=== PATIENT | female | born 1975 | race Two or more races ===

== ENCOUNTER 2023-04-23 15:05 | Outpatient (REF) | payer OTHER, SELFPAY ==
--- NOTE | ~2023-04-23 | XR_ITS ---
X-RAY BILATERAL WRISTS CLINICAL HISTORY: Chronic pain. COMPARISON: No relevant prior studies are available for comparison. TECHNIQUE: 3 views of each wrist. FINDINGS: No acute fracture or subluxation. Carpal rows are maintained. No osseous erosions. No abnormal soft tissue calcifications. Symmetric bilateral soft tissue thickening, most likely related with patient body habitus. XR/XR wrist RT min 3V IMPRESSION: No significant radiographic abnormalities seen in the bilateral wrists to explain the patient's pain. Further evaluation with CT or MRI could be obtained as clinically deemed appropriate.
--- NOTE | ~2023-04-23 | XR_ITS ---
X-RAY BILATERAL WRISTS CLINICAL HISTORY: Chronic pain. COMPARISON: No relevant prior studies are available for comparison. TECHNIQUE: 3 views of each wrist. FINDINGS: No acute fracture or subluxation. Carpal rows are maintained. No osseous erosions. No abnormal soft tissue calcifications. Symmetric bilateral soft tissue thickening, most likely related with patient body habitus. XR/XR wrist LT min 3V IMPRESSION: No significant radiographic abnormalities seen in the bilateral wrists to explain the patient's pain. Further evaluation with CT or MRI could be obtained as clinically deemed appropriate.
== END 2023-04-23 15:06 | disposition home or self-care (01) ==
LOC: HO.HHCX 15:05
PROVIDERS: Visit Provider Internal Medicine
DX: M25.531 Pain in right wrist (principal); M25.532 Pain in left wrist
CPT/HCPCS: 73110

== ENCOUNTER 2023-04-29 08:54 | Outpatient (REF) | payer MEDICAID, OTHER, SELFPAY ==
--- NOTE | 2023-04-29 | EMG_ITS ---
Please see scanned EMG / Nerve Conduction Report. MTDD
== END 2023-04-29 08:55 | disposition home or self-care (01) ==
LOC: HO.NEURO 08:54
PROVIDERS: Visit Provider Internal Medicine
DX: M25.531 Pain in right wrist (principal); M25.532 Pain in left wrist
CPT/HCPCS: 95885; 95913

== ENCOUNTER 2024-04-27 12:00 | Outpatient (REF) | payer MEDICAID, OTHER, SELFPAY ==
[2024-04-27 13:21] LABS: MANUAL DIFF FLAG NO
[2024-04-27 13:36] LABS: Eosinophils Absolute Auto 0.1 X10*3/uL (0.0-0.4); Eosinophils Percent Auto 1.7 % (0-4); Hematocrit 38.4 % (37.0-47.0); Hemoglobin 12.1 g/dl (12.0-16.0); Lymphocytes Absolute Auto 1.8 X10*3/uL (1.2-4.9); Lymphocytes Percent Auto 44.2 % (20-40); Mean Corpuscular HGB Conc 31.5 g/dl (31.0-35.0); Mean Corpuscular Hemoglobin 23.7 pg (27.0-33.0); Mean Corpuscular Volume 75.1 fL (80.0-98.0); Mean Platelet Volume 10.8 fL (9.4-12.3); Monocytes Absolute Auto 0.4 X10*3/uL (0.1-1.2); Monocytes Percent Auto 8.6 % (2-11); Neutrophils Absolute Auto 1.8 x10*3/uL (2.0-8.3); Neutrophils Percent Auto 44.5 % (45-73); Platelet Count 270 X10*3/uL (160-400); Red Blood Count 5.11 X10*6/uL (4.20-5.50); Red Cell Distribution Width 16.8 % (11.0-16.0); White Blood Count 4.1 X10*3/uL (4.8-10.8)
[2024-04-27 14:16] LABS: Alanine Aminotransferase 27 U/L (0-31); Albumin Level 4.5 g/dL (3.5-5.0); Alkaline Phosphatase 200 U/L (39-117); Anion Gap 12 (12-20); Aspartate Amino Transferase 24 U/L (5-31); Bilirubin Total 0.3 mg/dL (0.0-1.0); Blood Urea Nitrogen 9 mg/dL (9-16); Calcium 9.6 mg/dL (8.4-10.2); Carbon Dioxide 24 mmol/L (22-29); Chloride 110 mmol/L (96-108); Cholesterol 234 mg/dL (<200); Estimated Glomerular Filt Rate > 60; Glucose Random 91 mg/dL (60-115); HDL Cholesterol 58 mg/dL (>40); LDL Cholesterol Calculated 160 mg/dL (<100); Potassium 3.7 mmol/L (3.3-5.1); Sodium 142 mmol/L (135-145); Total Protein 7.8 g/dL (6.5-8.0); Triglycerides 84 mg/dL (<150)
[2024-04-27 14:22] LABS: TSH reflex Free T4 2.92 uIU/mL (0.32-4.0)
[2024-04-28 08:48] LABS: HBS Num1 0.53 mIU/mL (0-7.99); HBc Num1 0.08 S/CO (0.00-0.79); HBsAGNum1 0.58 S/CO (0.00-0.99); HIV AB/AG Nonreactive (Nonreactive); HIV Num 1 0.05 S/CO (0.00-0.99); Hepatitis B Core Antibody Nonreactive (Nonreactive); Hepatitis B Surface Antigen Negative (Negative); ~HepC Num1 0.22 S/CO (0.00-0.79); ~Hepatitis B Surface Antibody NONREACTIVE (Nonreactive); ~Hepatitis C Antibody Nonreactive (Nonreactive)
== END 2024-04-27 12:01 | disposition home or self-care (01) ==
LOC: HO.HHCL 12:00
PROVIDERS: Visit Provider Family Medicine
DX: E66.3 Overweight (principal); Z13.9 Encounter for screening, unspecified
CPT/HCPCS: 36415; 80053; 80061; 84443; 85025; 86704; 86706; 86803; 87340; 87389